=== PATIENT | male | born 1985 | race Caucasian/White ===

== ENCOUNTER 2023-01-27 11:15 | Emergency (ER) | payer OTHER, SELFPAY ==
[2023-01-27 11:34] VITALS: BP 142/92; PULSE 72; RESP 18; TEMP 36.5; O2SAT 100
--- NOTE | 2023-01-27 11:39 | ED.SKABFB ---
HPI - Skin/Abscess/Foreign Bdy General Chief complaint: Skin/Abscess/Foreign Body Stated complaint: rash Time Seen by Provider: 01/27/23 11:39 Source: patient, RN notes reviewed and old records reviewed Mode of arrival: ambulatory Limitations: no limitations History of Present Illness HPI narrative: 37-year-old male presents to the [facility] with complaints of a rash to the left buttock. Symptoms started a week ago Patient states it started as painful red areas just to the left buttock that pain radiates to the left hip area. States that it changed to blisters after a day or so, has scabbed over since. Symptoms a total of 7 or 8 days. Has been treating it like a fungal infection, diaper rash. Has been applying Desitin Onset (ago): day(s) (7-8) Related Data Home Medications Medication Instructions Recorded Confirmed No Home Medications 01/27/23 01/27/23 Allergies Allergy/AdvReac Type Severity Reaction Status Date / Time No Known Allergies Allergy Verified 01/27/23 12:30 Review of Systems Review of Systems: All systems reviewed & are unremarkable except as noted in HPI and below Constitutional: Constitutional: Reports no additional constitutional complaints Eyes: Eyes: Reports no additional eye complaints ENT: Reports system reviewed and no additional complaints, except as documented Cardiovascular: Cardiovascular: Reports no additional cardiovascular complaints, Denies chest pain and Denies dyspnea Respiratory: Respiratory: Reports no additional respiratory complaints, Denies chest congestion, Denies cough and Denies dyspnea Gastrointestinal: Gastrointestinal: Reports no additional gastrointestinal complaints, Denies abdominal pain, Denies nausea and Denies vomiting Musculoskeletal: Musculoskeletal: Reports no additional musculoskeletal complaints Integumentary/Breasts: Skin/Breast: Reports as per HPI Neurologic: Reports system reviewed and no additional complaints, except as documented Psychiatric: Psychiatric: Reports no additional psychiatric complaints Allergic/Immunologic: Allergic/Immunologic: Reports no additional allergic/immunologic complaints PMFSH Comments At the time of my signature, I reviewed and agree with the nursing past medical, surgical, social, and family history. There is no relevant family history pertinent to the patient complaint. Exam Const: General: cooperative, healthy appearing, comfortable, no acute distress, well developed, alert and well nourished Nutritional Appearance: well nourished Orientation/consciousness: patient oriented x3 Limitations: no limitations HENMT: Head: normal to inspection Ears: hearing grossly normal bilaterally and external ears normal Face/Nose/Sinus: Normal external nose present, Normal nares present, Normal nasal mucous membranes and turbinates present and normal facial exam Face and sinus: normal facial exam Mouth: Yes Normal oral and palatal mucosa present, Yes lip normal and Yes moist mucous membranes Throat: posterior oropharynx normal and uvula midline Eyes: General: appearance normal, both eyes and all related structures Alignment and Position: alignment normal Periorbital: periorbital findings normal Pupils: Equal, round and reactive pupils present EOM: EOMs intact bilaterally Neck: Neck: normal visual inspection, full ROM, no lymphadenopathy and no meningeal signs Chest: Chest palpation & inspection: normal inspection of the chest Resp: Effort & Inspection: normal respiratory effort and able to speak in complete sentences Auscultation: clear to auscultation bilaterally, no crackles, no rales, no rhonchi and no wheezes Cardio: Rate: regular rate Rhythm: regular rhythm Back/Spine/Pelvis: Cervical Spine: cervical ROM normal Thoracic/Lumbar Spine: No thoracic spinal tenderness Skin: General skin exam: normal color and no rashes or lesions noted Lesions: no lesions Wounds: no wounds Other: Left buttock does not cross midline,
== END 2023-01-27 11:58 | disposition home or self-care (01) ==
PROVIDERS: Emergency Provider Nurse Practitioner
DX: B02.9 Zoster without complications (principal)
CPT/HCPCS: 99211; 99213; G0463

== ENCOUNTER 2023-11-26 08:08 | Emergency (ER) | payer OTHER, SELFPAY ==
[2023-11-26 08:22] VITALS: BP 133/83; PULSE 71; RESP 18; TEMP 36.2; O2SAT 100
--- NOTE | 2023-11-26 08:26 | ED.EYEPROB ---
HPI - Eye Problem General Chief complaint: Eye Problems Stated complaint: lt eye swollen Source: patient Mode of arrival: ambulatory Limitations: no limitations History of Present Illness HPI Narrative: 38-year-old male presented for complaint of left eye swelling over the past 2 days. He denies photophobia, eye pain, itching, or foreign body. Denies Injury. Endorses mild pain with rubbing the eye, some yellow discharge and clear tearing at times. No treatment prior to arrival. Does not wear contact lenses. chief complaint: eye pain Related Data Allergies Allergy/AdvReac Type Severity Reaction Status Date / Time No Known Allergies Allergy Verified 11/26/23 08:22 Review of Systems Review of Systems: CONSTITUTIONAL: Denies body aches, fever, chills EYES:Endorses swelling left eye; denies FB sensation, photophobia, visual changes ENT: Denies rhinorrhea, congestion, sore throat, or otalgia. CARDIOVASCULAR: Denies chest pain, palpitations RESPIRATORY: Denies cough or dyspnea. SKIN: Denies rash, itching, or wounds. NEUROLOGIC: Denies headache All systems reviewed & are unremarkable except as noted in HPI and below PMFSH Comments At time of signature, I have reviewed and agree with nursing past medical, surgical, social and family history unless otherwise noted. Please see nursing chart for further information. There is no relevant family history pertinent to the presenting complaint Exam Narrative: GENERAL: Well-appearing HEAD: Normocephalic, atraumatic. EYES: No conjunctival injection, left upper eye lid swelling, Lid eversion shows internal hordeola to medial aspect upper lid. Yellow drainage. PERRLA EOMI. ENT: Mucous membranes pink and moist. No rhinorrhea. HEART: Regular rate and rhythm. SKIN: Warm, dry, no rash. Normal skin turgor. NEURO: No focal deficits. Alert and oriented x3 PSYCH: Normal affect. Course Course Emergency Course: Patient is aware of diagnosis, understands and agrees to treatment plan. Anticipatory guidance given. Patient agrees to follow-up as directed and is aware of reasons to seek care at the emergency department. Portions of this record may have been created with voice recognition software Level of Care: Express Care Visit Vital Signs Vital signs: Vital Signs Temperature 97.2 F L 11/26/23 08:22 Pulse Rate 71 11/26/23 08:22 Respiratory Rate 18 11/26/23 08:22 Blood Pressure 133/83 11/26/23 08:22 Pulse Oximetry 100 11/26/23 08:22 Oxygen Delivery Room Air 11/26/23 08:22 Temperature 97.2 F L 11/26/23 08:22 Pulse Rate 71 11/26/23 08:22 Respiratory Rate 18 11/26/23 08:22 Blood Pressure 133/83 11/26/23 08:22 Pulse Oximetry 100 11/26/23 08:22 Oxygen Delivery Room Air 11/26/23 08:22 Procedures FB Removal Eye Foreign Body #1: Foreign Body Removal Date: 11/26/23 Location: eye (L) Topical anesthetic used: tetracaine Evidence of corneal penetration: No Procedure performed under: other (Wood's lamp) Patient tolerated procedure: well and no complications Foreign Body Removal Narrative: Left Eye was anesthetized with 1 drop of tetracaine and anesthesia was achieved. Lid was everted and examined for foreign body. Medial aspect upper lid internal hordeolum noted, draining. No foreign body, corneal abrasion, or ulceration identified with Estrella lamp. The eye was flushed with eye wash. Pt tolerated procedure well. MDM - Eye Problem MDM Narrative Medical decision making narrative: Discussed physical exam findings consistent with left internal stye, will send Rx cephalexin should redness/swelling worsen despite the supportive measures, he does not have pcp or ophtho. Advised supportive measures and signs/symptoms to go to the ER. Pt is appropriate for outpt treatment and f/u. Differential Diagnosis Differential diagnosis: Likely corneal abrasion, conjunctivitis, acute iritis, p
[2023-11-26] MEDS: DACRIOSE EYE IRRIGATION 118 ML BOTTLE AFFCTD EYE (08:31)
[2023-11-26] MEDS: FLUORESCEIN SOD 1 MG/STRIP AFFCTD EYE (08:32)
[2023-11-26] MEDS: TETRACAINE HCL 0.5% OPHTH SOLN 4 ML BTL AFFCTD EYE (08:32)
== END 2023-11-26 08:47 | disposition home or self-care (01) ==
PROVIDERS: Emergency Provider Nurse Practitioner Family; Referring Provider Family Medicine
DX: H00.024 Hordeolum internum left upper eyelid (principal)
CPT/HCPCS: 99213; A9270; G0463